=== PATIENT | female | born 1980 | race Caucasian/White ===

== ENCOUNTER → 2019-06-10 | Outpatient (CLI) | payer OTHER, MEDICAID | LOC: LB.CLINIC 06-09 09:27 | PROVIDERS: ATTEND Nurse Practitioner Family | DX: Z00.00 Encounter for general adult medical examination without abnormal findings (principal) | CPT/HCPCS: 36415; 80061; 82947 ==

== ENCOUNTER → 2019-06-16 | Outpatient (CLI) | payer OTHER, MEDICAID ==
--- NOTE | 2019-06-16 17:31 | US ---
Date of Service: 06/16/19 Clinical Data: Varicose veins of bilateral lower extremities with pain RIGHT LEG VENOUS DOPPLER: Negative for DVT. LEFT LEG VENOUS DOPPLER: Negative for DVT. There is venous reflux noted bilaterally. [id number] MTDD
== END ==
LOC: LB.US 10:59
PROVIDERS: ATTEND Nurse Practitioner Family
DX: I83.813 Varicose veins of bilateral lower extremities with pain (principal)
CPT/HCPCS: 93925